=== PATIENT | female | born 1985 | race Caucasian/White ===

== ENCOUNTER 2016-10-30 12:55 | Emergency (ER) | payer OTHER ==
[~2016-10-30] VITALS: Ht 160 cm; Wt 70.8 kg
[2016-10-30 15:42] VITALS: BP 158/103
== END 2016-10-30 15:42 | disposition home or self-care (01) ==
LOC: ED 12:55
DX: S92.424A Nondisplaced fracture of distal phalanx of right great toe, initial encounter for closed fracture (principal); Z86.73 Personal history of transient ischemic attack (TIA), and cerebral infarction without residual deficits; W20.8XXA Other cause of strike by thrown, projected or falling object, initial encounter; Y93.89 Activity, other specified; Y92.89 Other specified places as the place of occurrence of the external cause; Y99.8 Other external cause status